=== PATIENT | male | born 1970 | race Caucasian/White ===

== ENCOUNTER 2018-06-30 14:06 | Emergency (ER) | payer BC ==
[2018-06-30 14:33] LABS: #Eosinphils 0.4 thou/uL (0.0-0.7); #Lymphocytes 2.5 thou/uL (1.20-3.40); #Monocytes 0.6 thou/uL (0.11-0.59); #Neutrophils 3.4 thou/uL (1.40-6.50); %Basophils 0.5 % (0.0-1.0); %Eosinophils 6.4 % (0.0-10.0); %Lymphocytes 35.5 % (21.0-51.0); %Monocytes 8.8 % (0.0-10.0); %Neutrophils 48.8 % (42.0-75.0); Mean Corpuscular HGB CONC 34.3 g/dL (32.0-36.0); Mean Corpuscular Hemoglobin 31.3 pg (27.0-31.0); Mean Corpuscular Volume 91.3 fL (78.0-98.0); Mean Platelet Volume 8.8 fL (7.4-10.4); Platelet Count 227 thou/uL (130-400); RBC Distribution Width 12.2 % (11.5-14.5); Red Blood Cell (RBC) Count 4.47 mill/uL (4.70-6.10)
--- NOTE | 2018-06-30 14:51 | CT ---
FHead CT without contrast 06/30/2018: COMPARISON: None HISTORY: Dizziness TECHNIQUE: Axial CT imaging at 5 mm intervals from vertex through skull base without contrast FINDINGS: Imaged paranasal sinuses and mastoid air cells well-aerated. No displaced calvarial fractur e, intracranial hemorrhage, midline shift, or mass effect. IMPRESSION: No acute findings.
[2018-06-30 15:02] LABS: ALT (SGPT) 25 U/L (8-55); AST (SGOT) 30 U/L (5-34); Albumin 4.3 g/dL (3.5-5.0); Alkaline Phosphatase 97 U/L (40-150); Anion Gap 13 mmol/L (10-20); BUN (Urea Nitrogen) 12 mg/dL (8.9-20.6); Bilirubin, Total 0.4 mg/dL (0.2-1.2); Calc. Creatinine Clearance 0 mL/min (70-130); Calcium 9.3 mg/dL (7.8-10.44); Carbon Dioxide 26 mmol/L (22-29); Chloride 107 mmol/L (98-107); Estimated GFR-MDRD Greater than 90; Globulin 3.1 g/dL (2.4-3.5); Glucose 95 mg/dL (70-105); Potassium 4.8 mmol/L (3.5-5.1); Protein, Total 7.4 g/dL (6.0-8.3); Sodium 141 mmol/L (136-145)
--- NOTE | 2018-06-30 15:03 | RAD ---
PORTABLE CHEST: Date: 06/30/18 HISTORY: Chest pain. Left arm tingling. FINDINGS: Heart size and mediastinum are within normal limits. Lungs are clear of infiltrates. No significant b prabhu findings. IMPRESSION: No active intrathoracic disease. POS: [facility]
[2018-06-30] MEDS ORDERED: Meclizine HCl 25 MG TAB ONE (15:41)
== END 2018-06-30 16:27 | disposition home or self-care (01) ==
LOC: ERS 14:06
DX: R42 Dizziness and giddiness (principal); R20.2 Paresthesia of skin; F32.9 Major depressive disorder, single episode, unspecified; Z79.899 Other long term (current) drug therapy
CPT/HCPCS: 36415; 70450; 71045; 80053; 82550; 84484; 85025; 93005; 96360

== ENCOUNTER 2022-08-10 21:35 | Emergency (ER) | payer BC | END 2022-08-10 22:04 | disposition left against medical advice (07) | LOC: ERS 21:35 | DX: Z53.21 Procedure and treatment not carried out due to patient leaving prior to being seen by health care provider (principal) ==